=== PATIENT | male | born 1985 | race African-American/Black ===

== ENCOUNTER 2020-11-20 14:04 | Inpatient (IN) ==
[2020-11-20] MEDS ORDERED: ALBUTEROL/IPRATROPIUM 3 ML NEB RESP TX PRN (15:57)
[2020-11-20] MEDS ORDERED: ACETAMINOPHEN 325 MG TABLET PO PRN (15:57)
[2020-11-20] MEDS ORDERED: ONDANSETRON 4 MG/2 ML VIAL IV PRN (15:57)
[2020-11-20] MEDS ORDERED: BISACODYL 5 MG TABLET PO PRN (15:57)
[2020-11-20] MEDS ORDERED: hydroCHLOROthiazide 25 MG TABLET PO SCH (16:30)
[2020-11-20] MEDS ORDERED: PIPERACILLIN/TAZOBACTAM 3,375 MG VIAL IV ONE (16:58)
[2020-11-20] MEDS: KETOROLAC 30 MG/1 ML VIAL IV PRN (17:20)
[2020-11-20] MEDS: PIPERACILLIN/TAZOBACTAM 3,375 MG in SODIUM CHLORIDE 0.9% 100 ML IV SCH ×2 (17:21→23:55)
[2020-11-20] MEDS: LACTATED RINGERS 1,000 ML IV SCH (17:21)
[2020-11-20 17:23] LABS: Basophils # 0.1 10*3/uL (0.0-0.2); Basophils % 0.4 % (0.0-0.8); Eosinophils # 0.1 10*3/uL (0.0-0.87); Eosinophils % 0.9 % (0.00-10.9); Hemoglobin 13.6 GM/DL (14.0-18.0); Immature Granulocytes % 0.4 %; Immature Granulocytes Absolute 0.05 #; Lymphocytes # 2.3 10*3/uL (1.4-4.0); Lymphocytes % 16.3 % (21.2-54.2); Mean Corpuscular HGB Conc 33.2 GM/DL (32-36); Mean Corpuscular Volume 75.4 FL (87-102); Mean Platelet Volume 10.6 FL (9.6-12.0); Monocytes % 13.1 % (1.7-12.7); Neutrophils % 68.9 % (38.7-73.9); Platelet Count 330 T/CUMM (130-400); Red Blood Count 5.44 MC/CUMM (3.8-5.5); Red Cell Distribution Width 14.1 % (9.3-17.3); White Blood Count 13.8 T/CUMM (4-12)
[2020-11-20 17:39] LABS: Calcium 9.6 MG/DL (8.5-10.1); Osmolality,Calculated 262.4 MOS/KG (273-304); Potassium 4.4 MMOL/L (3.5-5.1); Total Protein 9.2 G/DL (6.4-8.2)
[2020-11-21] MEDS ORDERED: ETOMIDATE 40 MG/20 ML VIAL IV ONE (07:11)
[2020-11-21] MEDS ORDERED: propofoL 200 MG/20 ML VIAL IV ONE ×3 (07:11→07:38)
[2020-11-21] MEDS ORDERED: fentaNYL 100 MCG/2 ML VIAL ONE (07:11)
[2020-11-21] MEDS ORDERED: LIDOCAINE 2% 5 ML VIAL ONE (07:11)
[2020-11-21] MEDS ORDERED: MIDAZOLAM 2 MG/2 ML VIAL ONE ×2 (07:12→07:38)
[2020-11-21] MEDS ORDERED: LACTATED RINGERS 1,000 ML IV SCH (07:30)
[2020-11-21] MEDS ORDERED: LIDOCAINE 1%/EPI INJ 20 ML VIAL ONE (07:36)
[2020-11-21] MEDS ORDERED: ONDANSETRON 4 MG/2 ML VIAL ONE (07:53)
[2020-11-21] MEDS ORDERED: KETOROLAC 30 MG/1 ML VIAL ONE (07:53)
[2020-11-21] MEDS ORDERED: SODIUM CHLORIDE 0.9% 100 ML IV ONE (07:53)
[2020-11-21] MEDS: LOSARTAN 50 MG TABLET PO SCH ×2 (09:45→09:46)
[2020-11-21] MEDS: hydroCHLOROthiazide 25 MG TABLET PO SCH ×2 (09:45→09:46)
[2020-11-21] MEDS: LACTATED RINGERS 1,000 ML IV SCH ×2 (09:46→17:17)
[2020-11-21] MEDS: PIPERACILLIN/TAZOBACTAM 3,375 MG in SODIUM CHLORIDE 0.9% 100 ML IV SCH ×3 (09:46→23:59)
[2020-11-21] MEDS: PANTOPRAZOLE 40 MG TABLET PO SCH (09:46)
[2020-11-21] MEDS: HYDROmorphone 2 MG/1 ML VIAL IV PRN ×3 (12:39→23:55)
[2020-11-21] MEDS: KETOROLAC 30 MG/1 ML VIAL IV PRN (23:55)
[2020-11-22 06:17] LABS: Basophils % 0.3 % (0.0-0.8); Eosinophils # 0.6 10*3/uL (0.0-0.87); Eosinophils % 6.1 % (0.00-10.9); Hematocrit 37.1 VOL% (42.0-52.0); Hemoglobin 12.1 GM/DL (14.0-18.0); Immature Granulocytes % 1.3 %; Immature Granulocytes Absolute 0.12 #; Lymphocytes # 1.9 10*3/uL (1.4-4.0); Mean Corpuscular HGB Conc 32.6 GM/DL (32-36); Mean Corpuscular Volume 77.6 FL (87-102); Mean Platelet Volume 10.1 FL (9.6-12.0); Monocytes % 15.8 % (1.7-12.7); Neutrophils % 55.5 % (38.7-73.9); Platelet Count 300 T/CUMM (130-400); Red Blood Count 4.78 MC/CUMM (3.8-5.5); Red Cell Distribution Width 13.9 % (9.3-17.3); White Blood Count 9.2 T/CUMM (4-12)
[2020-11-22 06:44] LABS: Eosinophils 9 % (0-10); Hypochromasia Slight; Lymphocytes 19 % (20-55); Platelet Estimate Adequate; Segmented Neutrophils 59 % (50-85); Total Cells Counted 100
[2020-11-22 06:54] LABS: Calcium 8.4 MG/DL (8.5-10.1); Osmolality,Calculated 267.1 MOS/KG (273-304); Potassium 4.1 MMOL/L (3.5-5.1)
[2020-11-22] MEDS: PIPERACILLIN/TAZOBACTAM 3,375 MG in SODIUM CHLORIDE 0.9% 100 ML IV SCH (08:28)
[2020-11-22] MEDS: KETOROLAC 30 MG/1 ML VIAL IV PRN (08:28)
[2020-11-22] MEDS: PANTOPRAZOLE 40 MG TABLET PO SCH (08:28)
[2020-11-22] MEDS: LACTATED RINGERS 1,000 ML IV SCH ×2 (08:29→08:31)
[2020-11-22] MEDS: HYDROmorphone 2 MG/1 ML VIAL IV PRN (08:58)
[2020-11-22 11:14] VITALS: BP 112/62
[2020-11-22] MEDS ORDERED: SODIUM HYPOCHLORITE 0.25% IRRIG 473 ML BOTTLE TOP SCH (11:30)
== END 2020-11-22 14:25 | disposition home or self-care (01) | DRG 902 ==
LOC: N.ED 14:04 → N.EDINP 15:57 → N.3E 20:40
PROVIDERS: ADMIT Surgery; ATTEND Surgery